=== PATIENT | male | born 1970 | race African-American/Black ===

== ENCOUNTER 2018-10-14 19:11 | Emergency (ER) | payer OTHER ==
[~2018-10-14] VITALS: Ht 172.7 cm; Wt 81.6 kg
--- NOTE | 2018-10-14 19:30 | NUR ---
[facility]EN FROM [facility]F FOR OTB, PATIENT C/O CHRONIC BACK PAIN AND HEADACHE. PT AOX4 RR EVEN AND UNLABORED. NO SOB NOTED. NO NVD AT THIS TIME. PT UNDER [employer] CUSTODY WAITING FOR MD FLETCHER.
[2018-10-14] MEDS ORDERED: HYDROCODONE/APAP 5/325MG 1 EACH TABLET ONE (19:50)
[2018-10-14] MEDS ORDERED: KETOROLAC TROMETHAMINE INJ 30 MG/ML VIAL ONE (19:50)
[2018-10-14] MEDS ORDERED: DEXAMETHASONE SOD PHOSPHATE 10 MG/ML VIAL ONE (19:50)
[2018-10-14] MEDS ORDERED: DIVALPROEX SODIUM 250 MG TABLET.DR PO ONE ×2 (19:51→20:00)
[2018-10-14] MEDS ORDERED: OLANZAPINE 5 MG TABLET ONE (19:51)
[2018-10-14] MEDS ORDERED: OLANZAPINE 5 MG TABLET PO ONE (20:00)
[2018-10-14] MEDS ORDERED: HYDROCODONE/APAP 5/325MG 1 EACH TABLET PO ONE (20:00)
[2018-10-14] MEDS ORDERED: KETOROLAC TROMETHAMINE INJ 60 MG/2 ML VIAL IM ONE (20:00)
[2018-10-14] MEDS ORDERED: DEXAMETHASONE SOD PHOSPHATE 4 MG/ML VIAL IM ONE (20:00)
--- NOTE | 2018-10-14 21:17 | NUR ---
Patient discharged in stable condition under [employer] custody. Written and verbal after care instructions given. Patient verbalizes understanding of instruction. ambulatory with a steady gait.
[2018-10-14 21:18] VITALS: BP 127/92
== END 2018-10-14 21:19 ==
LOC: ER 19:15
DX: G89.29 Other chronic pain (principal); M54.5 Low back pain; F31.9 Bipolar disorder, unspecified; F17.200 Nicotine dependence, unspecified, uncomplicated; Z60.2 Problems related to living alone
CPT/HCPCS: 96372 ×2; 99284; J1100; J1885